=== PATIENT | male | born 1955 | race Caucasian/White ===

== ENCOUNTER 2022-01-31 20:26 | Emergency (ER) | payer OTHER, MEDICARE ==
[2022-01-31] MEDS ORDERED: Amoxicillin/Clavulanate K 875-125 MG Tab PO SCH (20:42)
== END 2022-01-31 21:15 | disposition home or self-care (01) ==
LOC: LL.ED 20:26
DX: S61.451A Open bite of right hand, initial encounter (principal); W64.XXXA Exposure to other animate mechanical forces, initial encounter
CPT/HCPCS: 99283